=== PATIENT | male | born 1995 | race Caucasian/White ===

== ENCOUNTER 2023-01-08 13:42 | Emergency (ER) | payer OTHER, SELFPAY ==
--- NOTE | ~2023-01-08 | XR_ITS ---
EXAMINATION: XR KNEE, LEFT CLINICAL INFORMATION: Fall, pain COMPARISON: None available. TECHNIQUE: Four views of the left knee. FINDINGS: Cortical irregularity of the medial aspect of the proximal fibula only seen on a single view. Alignment is anatomic. Joint spaces are maintained. No abnormal soft tissue calcification. XR/XR knee LT 3V IMPRESSION: Cortical irregularity of the medial aspect of the proximal fibula only seen on a single view. This may represent a nondisplaced fracture. Recommend correlation with point tenderness.
--- NOTE | ~2023-01-08 | XR_ITS ---
EXAMINATION: XR ANKLE, LEFT CLINICAL INFORMATION: Pain, fall COMPARISON: None available. TECHNIQUE: AP, lateral, and mortise views of the left ankle. FINDINGS: No fracture. Alignment is anatomic. No erosions. Joint spaces are maintained. Soft tissues are normal. XR/XR ankle LT min 3V IMPRESSION: Normal left ankle.
--- NOTE | ~2023-01-08 | XR_ITS ---
EXAMINATION: XR TIBIA AND FIBULA, LEFT CLINICAL INFORMATION: Pain, fall COMPARISON: None available. TECHNIQUE: AP and lateral views of the left tibia and fibula were obtained. FINDINGS: Retrocrural irregularity of the medial aspect of the proximal fibula suspicious for fracture. No additional fractures are identified. The knee and ankle joints are intact. No significant soft tissue swelling. XR/XR tibia fibula LT 2V IMPRESSION: Retrocrural irregularity of the medial aspect of the proximal fibula suspicious for fracture.
[2023-01-08 13:58] VITALS: BP 132/74; PULSE 78; RESP 18; TEMP 36.6; O2SAT 99; BMI 29.7
--- NOTE | 2023-01-08 14:47 | ED.LOWEXIN ---
HPI - Extremity Injury (Lower) General Chief Complaint: Extremity Injury, Lower Stated Complaint: L foot injury Time Seen by Provider: 01/08/23 14:41 Source: patient Mode of arrival: ambulatory Limitations: no limitations History of Present Illness HPI Narrative: 27-year-old here with left lower extremity pain after fall which occurred while ice skating. Patient reports he was ice skating when he caught the tip of his left toe causing his left foot to invert laterally and left lower leg flex underneath his body. denies hitting his head or loss of consciousness. Patient reports pain over the left lateral ankle extending up the side of the left lower leg to the knee. Related Data Allergies Allergy/AdvReac Type Severity Reaction Status Date / Time No Known Allergies Allergy Verified 01/08/23 13:57 Review of Systems Review of Systems: Yes all other systems are reviewed and are negative Constitutional: Constitutional: Reports no additional constitutional complaints, Denies body ache(s), Denies chills, Denies fever(s), Denies headache(s) and Denies weakness Eyes: Eyes: Reports no additional eye complaints and Denies change in vision ENT: Reports system reviewed and no additional complaints, except as documented, Denies dizziness, Denies headache(s), Denies nasal congestion, Denies nasal discharge and Denies neck pain Cardiovascular: Cardiovascular: Reports no additional cardiovascular complaints, Denies chest pain, Denies leg edema and Denies dyspnea Respiratory: Respiratory: Reports no additional respiratory complaints, Denies cough and Denies dyspnea Gastrointestinal: Gastrointestinal: Reports no additional gastrointestinal complaints, Denies abdominal pain, Denies diarrhea, Denies nausea and Denies vomiting Genitourinary: Genitourinary: Denies urinary incontinence Musculoskeletal: Musculoskeletal: Reports no additional musculoskeletal complaints, Denies back pain, Reports arthralgias, Denies joint swelling, Denies limited range of motion, Denies neck pain, Denies numbness and Denies tingling Integumentary/Breasts: Skin/Breast: Reports system reviewed and no additional complaints, except as docu and Denies rash Neurologic: Reports system reviewed and no additional complaints, except as documented, Denies Abnormal speech present, Denies dizziness, Denies headache(s), Denies numbness, Denies tingling and Denies weakness PMF Past Medical History Attestation statement: The following information was validated with the patient. Source: old records reviewed and nursing notes reviewed Social History Social History Advance Directives: No Advance Directives Information Provided: No Physical Exam Vital Signs: Vital Signs: Last Vital Signs Temp 97.8 F 01/08/23 13:58 Pulse 78 01/08/23 13:58 Resp 18 01/08/23 13:58 BP 132/74 01/08/23 13:58 Pulse Ox 99 01/08/23 13:58 O2 Del Method Room Air 01/08/23 13:58 BMI result Body Mass Index 29.7 Const: General: cooperative, healthy appearing, comfortable and no acute distress Orientation/consciousness: patient oriented x3 Limitations: no limitations HEENT: Head: Yes normal to inspection Ears: hearing grossly normal bilaterally General nose exam: Normal external nose present Face and sinus: Yes normal facial exam Mouth: Normal oral and palatal mucosa present Throat: Yes posterior oropharynx normal Eyes: General: appearance normal, both eyes and all related structures Pupils: Equal, round and reactive pupils present Neck: Neck: Yes normal visual inspection Chest: Chest palpation & inspection: normal inspection of the chest Resp: Effort & Inspection: normal respiratory effort Auscultation: clear to auscultation bilaterally Cardio: Rate: regular rate Rhythm: regular rhythm Peripheral pulses: Peripheral pulses 2+ throughout GI: Inspection: Yes normal to inspection Palpation (GI): Soft to palpation and nontender Auscultation: normal bowel sounds Back/Spine/Pelvis: Thoracic/Lumbar Spine: thoracic and lumbar spine normal to inspection Skin: General skin exam: no rashes or lesions noted Neuro: General: patient oriented x3, no focal motor deficits and normal sensation to monofilament Cranial nerves: Yes Equal, round and reactive pupils present Cognition (Neuro): normal cognition Speech: No Abnormal speech present Gait exam (Neuro): Normal gait present Motor exam (neuro): 5/5 motor strength present throughout Extrem: Other: TTP to left lateral ankle and lateral lower leg extending to the left knee laterally with no obvious swelling/deformity or ecchymosis. Full active and Passive range of motion of the left ankle left foot, left lower leg and left knee. Normal sensation. Normal DP and PT pulses. Negative Menard test. General: Yes normal to inspection Medical Decision Making Medical Decision Making MDM Narrative: 27-year-old here with left lower extremity pain after fall which occurred while ice skating. Patient reports he was ice skating when he caught the tip of his left toe causing his left foot to invert laterally and left lower leg flex underneath his body. denies hitting his head or loss of consciousness. Patient reports pain over the left lateral ankle extending up the side of the left lower leg to the knee. TTP to left lateral ankle and lateral lower leg extending to the left knee laterally with no obvious swelling/deformity or ecchymosis. Full active and Passive range of motion of the left ankle left foot, left lower leg and left knee. Normal sensation. Normal DP and PT pulses. Negative Menard test. Differential Diagnosis Differential Diagnoses: The differential diagnosis associated with the presentation includes Sprain, strain, fracture, dislocation Low concern for achilles tendon rupture Admission/Observation Consideration of admission/observation: Escalation of care including admission/observation considered no complicated fracture, dislocation or concern for vascular injury requiring advanced imaging or urgent orthopedic consultation Consult Healthcare Provider Management of the patient was discussed with: Digital Media Buyer I spoke to the orthopedic ANNA Hodgson- she recommended a tall walking boot with crutches and weight-bearing as tolerated Independent Interpretation I performed an independent interpretation of an: Plain X-Ray Interpretation: I independently reviewed the x-rays and agree with the radiology report Radiology Impression Discussion of test interpretation with radiology: I have reviewed the radiologist's reading. Radiologist Impression: [place] [id number] XRay Report Signed Patient: Alberto Tineo MR#: [id number] : 1995 Acct:[id number] Age/Sex: 27 / M ADM Date: 01/08/23 Loc: HO.ED Attending Dr: Ordering Physician: Marques Leigh MD Date of Service: 01/08/23 Procedure(s): XR ankle LT min 3V Accession Number(s): [id number] cc: Marques Leigh MD; Physician,None ~ EXAMINATION: XR ANKLE, LEFT CLINICAL INFORMATION: Pain, fall COMPARISON: None available. TECHNIQUE: AP, lateral, and mortise views of the left ankle. FINDINGS: No fracture. Alignment is anatomic. No erosions. Joint spaces are maintained. Soft tissues are normal. XR/XR ankle LT min 3V IMPRESSION: Normal left ankle. Launch?Image [address] [address] XRay Report Signed Patient: Alberto Tineo MR#: [id number] : 1995 Acct:[id number] Age/Sex: 27 / M ADM Date: 01/08/23 Loc: HO.ED Attending Dr: Ordering Physician: Viky Welch NP Date of Service: 01/08/23 Procedure(s): XR knee LT 3V Accession Number(s): [id number] cc: Physician,None ; Viky Welch WAXING MACHINE OPERATOR HELPER~ EXAMINATION: XR KNEE, LEFT CLINICAL INFORMATION: Fall, pain COMPARISON: None available. TECHNIQUE: Four views of the left knee. FINDINGS: Cortical irregularity of the medial aspect of the proximal fibula only seen on a single view. Alignment is anatomic. Joint spaces are maintained. No abnormal soft tissue calcification. XR/XR knee LT 3V IMPRESSION: Cortical irregularity of the medial aspect of the proximal fibula only seen on a single view. This may represent a nondisplaced fracture. Recommend correlation with point tenderness. [address] [address] XRay Report Signed Patient: Alberto Tineo MR#: [id number] : 1995 Acct:[id number] Age/Sex: 27 / M ADM Date: 01/08/23 Loc: .ED Attending Dr: Ordering Physician: Marques Leigh MD Date of Service: 01/08/23 Procedure(s): XR tibia fibula LT 2V Accession Number(s): [id number] cc: Marques Leigh MD; Physician,None ~ EXAMINATION: XR TIBIA AND FIBULA, LEFT CLINICAL INFORMATION: Pain, fall COMPARISON: None available. TECHNIQUE: AP and lateral views of the left tibia and fibula were obtained. FINDINGS: Retrocrural irregularity of the medial aspect of the proximal fibula suspicious for fracture. No additional fractures are identified. The knee and ankle joints are intact. No significant soft tissue swelling. XR/XR tibia fibula LT 2V IMPRESSION: Retrocrural irregularity of the medial aspect of the proximal fibula suspicious for fracture. Tests considered The following testing was considered but not selected: no complicated fracture, dislocation or concern for vascular injury requiring advanced imaging Prescription Management I considered prescription management with: Pain Medication Procedures Orthopedic Splinting/Casting Injury #1: Side: left Lower Extremity Injury Location: lower leg Lower Extremity Immobilizer: boot orthosis Other Orthopedic Equipment: crutches Discharge Plan Discharge Clinical Impression: Fibula fracture Patient Disposition: Home, Self-Care Instructions: Leg Fracture (ED), Crutch Instructions (ED) Additional Instructions: use the boot and crutches and weightbear as tolerated Elevate the leg Apply ice 20 minutes on 20 minutes off Take Motrin 3 times daily to help with pain and swelling Call the Orthopedic Department on Tuesday to set up your appointment for follow-up Referrals: [facility] – [place] Orth[facility] Surgeons [Provider Group] - 1 week Stand Alone Forms: Work/School Release
== END 2023-01-08 17:12 | disposition home or self-care (01) ==
PROVIDERS: Emergency Provider Emergency Medicine
DX: S82.492A Other fracture of shaft of left fibula, initial encounter for closed fracture (principal); X50.1XXA Overexertion from prolonged static or awkward postures, initial encounter; Y93.21 Activity, ice skating; Y92.330 Ice skating rink (indoor) (outdoor) as the place of occurrence of the external cause; Y99.9 Unspecified external cause status
CPT/HCPCS: 73562; 73590; 73610; 99283

== ENCOUNTER 2023-04-11 10:30 | Emergency (ER) | payer SELFPAY ==
[2023-04-11 10:57] VITALS: BP 139/76; PULSE 112; RESP 17; TEMP 36.6; O2SAT 98; BMI 29.1
[2023-04-11 12:23] LABS: IDNOW Serial# 08D9AD1C; Strep A Nucleic Acid Negative (Negative)
--- NOTE | 2023-04-11 12:26 | ED_ITS ---
HPI - General Adult General Chief complaint: Upper Respiratory Symptoms Stated complaint: Allergix Rx? Fever, itchy Time Seen by Provider: 04/11/23 12:25 Source: patient Mode of arrival: ambulatory Limitations: no limitations History of Present Illness HPI narrative: 27-year-old male with no significant past medical history who presents emergency department with concerns for ?white spots on tongue , fever, headache, and generalized body aches beginning on Tuesday. He reports roughly 10 days ago he was started on prophylactic antibiotics for STD. He reports he was on metronidazole, cefixime, and doxycycline. He states that he is attempted to use his toothbrush to try and remove the white spots with little success. He states that his tongue is uncomfortable and feels like sandpaper. He denies any shortness of breath, chest pain, vision changes, nausea, vomiting, diarrhea, constipation, dysphagia, change in phonation, weakness, dizziness. Pertinent positives and negatives discussed in HPI Related Data Previous Rx's Medication Instructions Recorded nystatin 100,000 unit/mL oral 100,000 unit buccal QID #60 mL 04/11/23 suspension Allergies Allergy/AdvReac Type Severity Reaction Status Date / Time No Known Allergies Allergy Verified 01/08/23 13:57 Review of Systems Review of Systems: Yes all other systems are reviewed and are negative [facility] Social History Social History Unable to assess alcohol history related to: Unknown Smoked in Last 30 Days: No Advance Directives: No Advance Directives Information Provided: No Physical Exam ED Vital Signs: Vital Signs - 24 hr 04/11/23 10:57 Temperature 98 F Pulse Rate 112 H Respiratory Rate 17 Blood Pressure 139/76 Pulse Oximetry 98 Oxygen Delivery Method Room Air BMI result Body Mass Index 29.1 Nursing notes and vital signs reviewed. GENERAL APPEARANCE: A&0 x 4, generally well appearing, no acute distress HENMT: Normal to inspection, atraumatic, face symmetrical. Normal external ears and nose clear. Oropharynx with mild erythema and 2+ tonsils. No exudate noted EYE: PERRLA, EOM intact, structures appear normal NECK: Supple without stiffness or restricted ROM. HEART: Normal rate and regular rhythm, normal S1/S2, no M/R/G LUNGS: LS CTA, moving air well. Able to speak in complete sentences. No crackles, wheezes, or rhonchi auscultated BACK: No CVAT, no obvious deformity EXTREMITIES: Moving all extremities without difficulty. Normal capillary refill. NEUROLOGICAL: Alert and oriented, moving all 4 extremities with equal strength. CN not formally tested but appearing grossly intact. Observed to ambulate with normal gait. Cognition normal SKIN: Warm and dry without any lesions, rash, or visible sores Medical Decision Making Medical Decision Making MDM Narrative: Old records reviewed for previous imaging, lab studies, ECGs, and notes. Patient was assessed the emergency department with no acute distress or toxicity noted. White plaques noted on bilateral sides of tongue with difficulty removing on exam using tongue depressor. Symptoms are consistent with thrush and nystatin suspension since patient's preferred pharmacy. Serology negative for COVID, flu, RSV, and strep. Patient is headache, fever, and generalized body aches are consistent with an acute viral upper respiratory infection with low suspicion at this time for medication reaction, pneumonia, tick-borne illness, asthma exacerbation. Patient educated to eat soft foods and increase fluid intake to prevent dehydration. Patient is safe for discharge at this time with plan for [id number] Tylenol and/or NSAID such as ibuprofen or naproxen for fever/discomfort with dosing as per packaging. HPI, PE, diagnostics, and plan discussed with patient and family with no unanswered questions at this time. Strict return precautions given to return to the emergency department with new, worsening, or concerning emergent symptoms. Recommended to follow-up with there primary care provider in 24-48 hours for further treatment and management. Differential Diagnosis Differential Diagnoses: The differential diagnosis associated with the p resentation includes But not limited to pneumonia, asthma, tick-borne illness, COVID, flu, RSV, acute viral upper respiratory infection, sepsis, malignancy Lab Data Labs: Lab Results 04/11/23 Range/Units 12:03 Influenza Type A (PCR) NEGATIVE (Negative) Influenza Type B (PCR) NEGATIVE (Negative) RSV RNA Qual (PCR) NEGATIVE (Negative) SARS-CoV-2 RNA (RT-PCR) NEGATIVE (Negative) S. pyogenes GrpA MELISSA Negative (Negative) Discharge Plan Discharge Clinical Impression: Candidiasis of mouth, Upper respiratory infection Patient Disposition: Home, Self-Care Instructions: Oral Candidiasis (ED), Upper Respiratory Infection (ED) Prescriptions: New nystatin 100,000 unit/mL suspension 100,000 unit buccal QID Qty: 60 0RF Rx Instructions: 4ml, 4 times a day, every 6 hours. Use until 48 hours after symptoms resolve Referrals: [facility] [place] Family Medicine [Provider Group] [facility] [place] [facility] [Provider Group] [facility] [place] [facility] [Provider Group] Stand Alone Forms: Work/School Release Print Language: Indian
[2023-04-11 12:56] LABS: Influenza A PCR NEGATIVE (Negative); Influenza B PCR NEGATIVE (Negative); Resp Syncy Virus RNA Qual PCR NEGATIVE (Negative); SARS COV2 PCR INHOUSE NEGATIVE (Negative)
[2023-04-11] MEDS: Ibuprofen 600 MG TABLET PO (13:13)
== END 2023-04-11 13:25 | disposition home or self-care (01) ==
PROVIDERS: Emergency Provider Emergency Medicine
DX: J06.9 Acute upper respiratory infection, unspecified (principal); B37.0 Candidal stomatitis; Z11.52 Encounter for screening for COVID-19; Z20.828 Contact with and (suspected) exposure to other viral communicable diseases
CPT/HCPCS: 0241U; 87651; 99283; 99284

== ENCOUNTER 2023-05-25 20:22 | Emergency (ER) | payer SELFPAY ==
[2023-05-25 20:34] VITALS: BP 127/60; PULSE 77; RESP 16; TEMP 36.7; O2SAT 97; BMI 30.5
--- NOTE | 2023-05-25 20:42 | ED.GENADULT ---
HPI - General Adult General Chief complaint: Skin/Abscess/Foreign Body Stated complaint: poison isela in a 'bad area' Related Data Previous Rx's ?Medication ?Instructions ?Recorded nystatin 100,000 unit/mL oral 100,000 unit buccal QID #60 mL 04/11/23 suspension nystatin 100,000 unit/mL oral 100,000 unit buccal TID 14 days 04/11/23 suspension #60 mL Allergies Allergy/AdvReac Type Severity Reaction Status Date / Time No Known Allergies Allergy Verified 05/25/23 20:37 COUNT INCLUDES THE [facility] Social History Social History Unable to assess alcohol history related to: Unknown Advance Directives: No Advance Directives Information Provided: No Physical Exam ED Vital Signs: Vital Signs - 24 hr 05/25/23 20:34 Temperature 98.0 F Pulse Rate 77 Respiratory Rate 16 Blood Pressure 127/60 Pulse Oximetry 97 Oxygen Delivery Method Room Air BMI result Body Mass Index 30.5 Course Course Course Narrative: RME:?28 yo male here with rash to his genitals that began after fishing last night. admits to fishing and burning wood. suspects poison isela. rash also noted to rash. took zyrtec approx 4 hours ago with little relief. Full HPI, ROS and PE to be performed by the primary ED provider. Reevaluation(s) Reevaluation #1: Patient left the ED without completing treatment. Discharge Plan Discharge Clinical Impression: Rash of groin Patient Disposition: Left W/O Completing Treatment Prescriptions: No Action nystatin 100,000 unit/mL suspension 100,000 unit buccal QID Qty: 60 0RF Rx Instructions: 4ml, 4 times a day, every 6 hours. Use until 48 hours after symptoms resolve nystatin 100,000 unit/mL suspension 100,000 unit buccal TID 14 Days Qty: 60 0RF Rx Instructions: administer 1/2 of dose in each side of the mouth Discharge Date/Time: 05/26/23 03:53
== END 2023-05-26 03:53 | disposition left against medical advice (07) ==
PROVIDERS: Emergency Provider Emergency Medicine
DX: L23.7 Allergic contact dermatitis due to plants, except food (principal)
CPT/HCPCS: 99281